=== PATIENT | female | born 1995 | race African-American/Black ===

== ENCOUNTER 2017-02-08 13:32 | Emergency (ER) | payer MEDICAID, OTHER ==
[~2017-02-08 13:32] MED LIST: PENVK500 PO
[2017-02-08 13:36] VITALS: BP 114/68; PULSE 96; RESP 14; TEMP 98.2; O2SAT 100
[2017-02-08 14:58] LABS: AUTOMATED NEUTROPHIL # 6.8 TH/MM3 (1.8-7.7); BASOPHIL % 0.2 % (0.0-2.0); EOSINOPHIL # 0.1 TH/MM3 (0-0.4); EOSINOPHIL % 1.3 % (0.0-4.0); HEMO FLAGS DIFF FINAL; LYMPH % 20.8 % (9.0-44.0); MEAN CELL VOLUME 83.8 FL (80.0-100.0); MEAN CORPUSCULAR HGB CONC 33.4 % (32.0-36.0); MONO % 6.8 % (0.0-8.0); NEUT % 70.9 % (16.0-70.0); PLATELET COUNT 179 TH/MM3 (150-450); RED BLOOD COUNT 4.53 MIL/MM3 (4.00-5.30); RED CELL DISTRIBUTION WIDTH 14.4 % (11.6-17.2); WHITE BLOOD COUNT 9.6 TH/MM3 (4.0-11.0)
[2017-02-08 15:15] LABS: ALT (GPT) 13 U/L (10-53); ANION GAP 9 MEQ/L (5-15); AST (GOT) 14 U/L (15-37); BICARBONATE 23.4 MEQ/L (21.0-32.0); BLOOD UREA NITROGEN 5 MG/DL (7-18); CHLORIDE 106 MEQ/L (98-107); GLOMERULAR FILTRATION RATE 169 ML/MIN (>89); POTASSIUM 3.5 MEQ/L (3.5-5.1); SODIUM (NA) 138 MEQ/L (136-145)
[2017-02-08 15:18] LABS: ALKALINE PHOSPHATASE 139 U/L (45-117); TOTAL BILIRUBIN ADULT 0.5 MG/DL (0.2-1.0)
[2017-02-08 15:58] VITALS: BP_SYST 106; BP_SYST 110; BP_SYST 114; BP_DIAS 60; BP_DIAS 71; BP_DIAS 79; RESP 18
[2017-02-08] MEDS ORDERED: SODIUM CHLOR 0.9% 1000 ML INJ 1,000 ML IV SCH (15:58)
--- NOTE | 2017-02-08 16:05 | PD ---
HPI Chief Complaint: Dizziness Time Seen by Provider: 15:55 Travel History International Travel<30 days: No Contact w/Intl Traveler<30days: No Traveled to known affect area: No History of Present Illness HPI This is a 22-year-old female EGA 36 weeks who presents for evaluation. 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 This lasted for 10 minutes and resolved after she sat down. She denies any syncope. She reports that there is some tightness in her chest at the time which resolved. She denies any shortness of breath, abdominal pain, nausea or vomiting, fevers or chills, flank pain, hematuria, dysuria, lower extremity edema. She denies any recent illnesses. She denies any recent dietary changes. She is otherwise healthy with no significant past medical history. Her PHARMACY ACCOUNT DIRECTOR is Dr. Casarez. No other complaints at this time. PFSH Past Medical History ?: : 0 Social History Alcohol Use: No Tobacco Use: No Substance Use: No Allergies-Medications (Allergen,Severity, Reaction): Coded Allergies: No Known Allergies (Unverified , 01/06/16) Reported Meds & Prescriptions Reported Meds & Active Scripts Active Penicillin V Potassium 500 Mg Tab 500 Mg PO QID 7 Days Review of Systems Except as stated in HPI: all other systems reviewed are Neg Physical Exam Narrative GENERAL: Well-developed well-nourished female in no acute distress SKIN: Warm and dry. HEAD: Atraumatic. Normocephalic. EYES: Pupils equal and round. No scleral icterus. No injection or drainage. ENT: No nasal bleeding or discharge. Mucous membranes pink and moist. NECK: Trachea midline. No JVD. CARDIOVASCULAR: Regular rate and rhythm. No murmur appreciated. RESPIRATORY: No accessory muscle use. Clear to auscultation. Breath sounds equal bilaterally. GASTROINTESTINAL: Abdomen distended with elevated fundal height, third trimester , nontender. MUSCULOSKELETAL: No obvious deformities. No edema. NEUROLOGICAL: Awake and alert. No obvious cranial nerve deficits. Motor grossly within normal limits. Normal speech. PSYCHIATRIC: Appropriate mood and affect; insight and judgment normal. Data Data Last Documented VS Vital Signs Date Time Temp Pulse Resp B/P (MAP) Pulse Ox O2 Delivery O2 Flow Rate FiO2 02/08/17 16:00 89 18 99 Room Air 02/08/17 15:59 02/08/17 13:36 98.2 Orders Orders Complete Blood Count With Diff (02/08/17 13:58) Comprehensive Metabolic Panel (02/08/17 13:58) Electrocardiogram (02/08/17 ) Orthostatic Vital Signs (02/08/17 15:58) Sodium Chlor 0.9% 1000 Ml Inj (Ns 1000 M (02/08/17 15:58) Labs Laboratory Tests Test 02/08/17 14:35 White Blood Count 9.6 TH/MM3 Red Blood Count 4.53 MIL/MM3 Hemoglobin 12.7 GM/DL Hematocrit 38.0 % Mean Corpuscular Volume 83.8 FL Mean Corpuscular Hemoglobin 28.0 PG Mean Corpuscular Hemoglobin Concent 33.4 % Red Cell Distribution Width 14.4 % Platelet Count 179 TH/MM3 Mean Platelet Volume 9.4 FL Neutrophils (%) (Auto) 70.9 % Lymphocytes (%) (Auto) 20.8 % Monocytes (%) (Auto) 6.8 % Eosinophils (%) (Auto) 1.3 % Basophils (%) (Auto) 0.2 % Neutrophils # (Auto) 6.8 TH/MM3 Lymphocytes # (Auto) 2.0 TH/MM3 Monocytes # (Auto) 0.6 TH/MM3 Eosinophils # (Auto) 0.1 TH/MM3 Basophils # (Auto) 0.0 TH/MM3 CBC Comment DIFF FINAL Differential Comment Blood Urea Nitrogen 5 MG/DL Creatinine 0.54 MG/DL Random Glucose 86 MG/DL Total Protein 7.2 GM/DL Albumin 2.8 GM/DL Calcium Level 8.8 MG/DL Alkaline Phosphatase 139 U/L Aspartate Amino Transf (AST/SGOT) 14 U/L Alanine Aminotransferase (ALT/SGPT) 13 U/L Total Bilirubin 0.5 MG/DL Sodium Level 138 MEQ/L Potassium Level 3.5 MEQ/L Chloride Level 106 MEQ/L Carbon Dioxide Level 23.4 MEQ/L Anion Gap 9 MEQ/L Estimat Glomerular Filtration Rate 169 ML/MIN [facility] Medical Decision Making Medical Screen Exam Complete: Yes Emergency Medical Condition: Yes Medical Record Reviewed: Yes Differential Diagnosis Arrhythmia, dehydration, electrolyte abnormality, pulmonary embolism, orthostatic hypotension, vasovagal lightheadedness Narrative Course 22-year-old female at estimated gestational age 36 weeks presents after a 10 minute episode of lightheadedness and chest tightness which occurred while standing at work and resolved her this was 5 hours ago and she has been asymptomatic since then. She appears well. A 12-lead EKG was obtained revealing sinus rhythm, rate 82. Basic lab work was ordered which revealed an abdomen of 2.8 but otherwise was unremarkable. The patient was monitored here for some time with no reoccurrence of her symptoms. She was given 1 L of IV fluids. Upon reexamination she is still asymptomatic, requesting that her significant other brings her haitian fries. She is stable for discharge, she will be referred to OB ED for clearance. Procedures EKG Prior to Arrival: Yes Diagnosis Primary Impression: Lightheadedness Additional Instructions: Follow up closely with her PHARMACY ACCOUNT DIRECTOR. Return for any new or worsening symptoms. Med/Other Pt SpecificInfo: No Change to Meds Disposition: 01 DISCHARGE HOME Condition: Stable Jona Murillo Feb 08, 2017 16:05
--- NOTE | 2017-02-09 19:39 | EKG ---
Date Performed: 02/08/2017 Time Performed: 14:13:23 PTAGE: 22 years EKG: Sinus rhythm WITH SINUS ARRHYTHMIA NORMAL ECG NO PREVIOUS TRACING DOCTOR: Ky Landaverde Interpretating Date/Time 02/09/2017 19:34:46
== END 2017-02-08 17:00 | disposition home or self-care (01) ==
LOC: NEPC 13:32
DX: O26.893 Other specified pregnancy related conditions, third trimester (principal); R42 Dizziness and giddiness; Z3A.36 36 weeks gestation of pregnancy
CPT/HCPCS: 80053; 85025; 93005; 99284; J7030

== ENCOUNTER 2017-02-08 17:43 | Emergency (ER) | payer MEDICAID ==
--- NOTE | 2017-02-08 18:23 | PD ---
HPI Chief Complaint Dizziness Date Seen: Feb 08, 2017 Time Seen: 18:18 Travel History International Travel<30 Days: No Contact w/Intl Traveler<30Days: No Known Affected Area: No History of Present Illness HPI 22-year-old black female at 37 weeks tomorrow patient of [facility] who presents complaining of dizziness today. States she's had some dizziness couple weeks ago as well. She came to the emergency room main ER here negative her liter fluid and center appear to be monitored. Currently NST is reactive she's kennedy Occasionally Weeks Gestation: 37 Para: 0 : 1 History Social History Alcohol Use: No Tobacco Use: No Substance Abuse: No Allergies-Medications (Allergen,Severity, Reaction): Coded Allergies: No Known Allergies (Unverified , 01/06/16) Home Meds Active Scripts Penicillin V Potassium (Penicillin V Potassium) 500 Mg Tab, 500 MG PO QID for 7 Days, TAB 0 Refills Prov:Dennis Montgomery MD 01/06/16 Review of Systems General / Constitutional: No: Fever, Weight Gain, Chills, Other Eyes: No: Diploplia, Blurred Vision, Visual changes, Pain, Photophobia HENT: Lightheadedness, No: Headaches, Vertigo Cardiovascular: No: Irregular Rhythm, Chest Pain or Discomfort, Palpitations, Tachycardia, Syncope, Varicosities, Edema, Cyanosis Respiratory: No: Cough, Short of Breath, Other Gastrointestinal: No: Nausea, Vomiting, Diarrhea Genitourinary: No: Decreased Urinary Output, Oliguria Musculoskeletal: No: Limited ROM, Weakness, Cramping, Edema, Pain Skin: No Rash, No Itching, No Dryness, No Lumps, No Change in Pigmentation, No Change in Nails, No Alopecia, No Lesions Neurologic: No: Weakness, Dizziness, Syncope, Focal Abnormalities, Coordination Problem, Headache, Slurred Speech, Seizures Psychiatric: No: Depression, Suicidal Ideations, Homicidal Ideation Endocrine: No: Heat Intolerance, Cold Intolerance, Polydipsia, Polyuria, Other Physical Exam Narrative GENERAL: Well-nourished, well-developed patient. SKIN: Warm and dry. HEAD: Normocephalic and atraumatic. EYES: No scleral icterus. No injection or drainage. ENT: No nasal drainage noted. Mucous membranes pink. Airway patent. NECK: Supple, trachea midline. No JVD. CARDIOVASCULAR: Regular rate and rhythm without murmurs, gallops, or rubs. RESPIRATORY: Breath sounds equal bilaterally. No accessory muscle use. BREASTS: Bilateral exam showed no masses , no retractions, no nipple discharge. ABDOMEN/GI: Abdomen soft, non-tender, bowel sounds present, no rebound, no guarding Gravid to [37-] weeks size Fundal Height: [37-] GENITOURINARY: External Genitalia: intact and normal in appearance BUS glands: [-] Cervix: [-] Dilatation: [0-] Effacement: [-0] Station: [-3] Presentation: [vtx-] Membranes: [intact ] Uterine Contractions: [occasional-] FHT's: Category: [1-] Baseline: [133-] Reactive: [-yes] Variability: [-mod] Decels: [0-] EXTREMITIES: No cyanosis or edema. BACK: Nontender without obvious deformity. No CVA tenderness. NEUROLOGICAL: Awake and alert. Motor and sensory grossly within normal limits. Five out of 5 muscle strength in all muscle groups. Normal speech. MDM Interpretation(s) 22-year-old black female at 37 weeks tomorrow presents planning of dizziness today. heart tones are reactive she is having occasional contraction. She was seen in the main ER prior to coming up here given the liter fluid that time she is feeling better now. She had an acute spell of dizziness a couple weeks ago but otherwise has not had a problem with Plan Plan patient be discharged home to increase bedrest if needed, Tylenol when necessary and increase her fluid intake to hydrate. Follow-up with the Marbella Casarez's office Diagnosis Diagnosis: Primary Impression: Dizziness Additional Impression: 37 weeks gestation of Disposition: DISCHARGE HOME Condition: Stable Fernando Ham II, MD Feb 08, 2017 18:23
[2017-02-08] MEDS ORDERED: LACTATED RINGER'S 1000 ML INJ 1,000 ML IV ONE (19:15)
== END 2017-02-08 19:15 | disposition home or self-care (01) ==
LOC: HOBED 17:43
DX: O26.893 Other specified pregnancy related conditions, third trimester (principal); R42 Dizziness and giddiness; Z3A.37 37 weeks gestation of pregnancy
CPT/HCPCS: 59025

== ENCOUNTER 2017-03-11 12:07 | Emergency (ER) | payer MEDICAID ==
[~2017-03-11] VITALS: Ht 154.9 cm; Wt 78.0 kg
--- NOTE | 2017-03-11 13:18 | PD ---
HPI Travel History International Travel<30 Days: No Contact w/Intl Traveler<30Days: No Known Affected Area: No (Flaquita Herron MD R1) History of Present Illness HPI 22 yr old at 41/2 weeks presents with 5 day hx of back pain. She is a patient of Marbella Casarez. She reports that intermittent,sharp back pain began on Thursday. She has not tried anything for the pain. She endorses urinary frequency. She denies dysuria, LOF, vaginal bleeding, vaginal discharge, and contractions. She reports good movement. She states that her next appointment with patternmaker wood will be next Thursday for induction if she has not gone into labor. (Flaquita Herorn MD R1) History Past Medical History Medical History: Denies Significant Hx (Flaquita Herron MD) Past Surgical History Surgical History: No Previous Surgery (Flaquita Herron MD) Family History Family History: Negative (Flaquita Herron MD) Social History Alcohol Use: No Tobacco Use: No Substance Abuse: No (Flaquita Herron MD) Allergies-Medications (Allergen,Severity, Reaction): Coded Allergies: No Known Allergies (Unverified Adverse Reaction, Unknown, 03/11/17) Home Meds Active Scripts Penicillin V Potassium (Penicillin V Potassium) 500 Mg Tab, 500 MG PO QID for 7 Days, TAB 0 Refills Prov:Dennis Montgomery MD 01/06/16 Review of Systems Except as stated in HPI: all other systems reviewed are Neg (Flaquita Herron MD R1) Physical Exam Narrative GENERAL: Well-nourished, well-developed patient. SKIN: Warm and dry. HEAD: Normocephalic and atraumatic. EYES: No scleral icterus. No injection or drainage. ENT: No nasal drainage noted. Mucous membranes pink. Airway patent. NECK: Supple, trachea midline. No JVD. CARDIOVASCULAR: Regular rate and rhythm without murmurs, gallops, or rubs. RESPIRATORY: Breath sounds equal bilaterally. No accessory muscle use. DIGITAL EXAM: done by nurse, soft, mid-position, closed cervix, -4 FHT's: Category: 1 Baseline: 120s Reactive: yes Variability: moderate Decels: no EXTREMITIES: No cyanosis or edema. BACK: Nontender without obvious deformity. NEUROLOGICAL: Awake and alert. Motor and sensory grossly within normal limits. (Flaquita Herron MD R1) Data Data Vital Signs Reviewed: Yes Group B Strep: Positive (Flaquita Herron MD R1) MDM Plan 22 yr old at 41/2 weeks with [place] contractions 1. IUP -Category 1, reassuring 2. GBS positive 3. Bar - Bee contractions -contractions on monitor every 6-7 min -closed, normal cervix on digital exam via nurse - (Flaquita Herron MD R1) Attending Attestation The patient is a 22-year-old 1 para 0 at 41 weeks and 2 days. She presented with complaints of lower back pain. Labor was ruled out during her hospital course. We recommended induction of labor as the patient is past 41 weeks gestational age. The patient declined induction of labor at this time, however was amenable to induction of labor later this week. Biophysical profile was obtained which was 8 out of 8 with reactive NST. EFREM was 12.2. The patient is given strict labor precautions and kick counts. She will be scheduled for induction. I personally evaluated and examined the patient. I discussed the risks of induction including but not limited to increased risk of delivery. I discussed that we only perform deliveries for medical indications and her goals a healthy vaginal delivery if possible. I performed all lopez decision making portions of the case. (Hermelinda Palafox MD) Disposition: 01 DISCHARGE HOME Condition: Good Flaquita Herron MD R1 Mar 11, 2017 13:18 Hermelinda Palafox MD Mar 11, 2017 15:44
[2017-03-11 14:18] LABS: BACTERIA, URINE FEW /hpf; BLOOD, URINE NEG (NEG); COMMENT (UR) CULTURE INDICATED; CULTURE IF INDICATED CULTURE INDICATED; GLUCOSE,URINE NEG (NEG); KETONE, URINE NEG (NEG); MUCUS URINE FEW /lpf (OCC); NITRITE,URINE NEG (NEG); SQUAMOUS EPITHELIAL CELL URINE 25 /hpf (0-5); URINE COLOR YELLOW (YELLW/STRAW)
--- NOTE | 2017-03-11 15:47 | PD ---
History of Present Illness History of Present Illness NST report Indications: IUP at 41.2, post term heart rate baseline is in the 130s, with good accelerations, and no decelerations noted. There is moderate long-term variability and the heart rate tracing is reactive and reassuring for gestational age. Biophysical profile was performed which was 8 out of 8, with NST is 10 out of 10 Follow-up: Follow-up as clinically indicated, patient will be scheduled for induction this week Final diagnosis IUP at 41.2, postterm , reassuring testing Hermelinda Palafox MD Mar 11, 2017 15:47
--- NOTE | 2017-03-11 15:57 | PD ---
HPI Travel History International Travel<30 Days: No Contact w/Intl Traveler<30Days: No Known Affected Area: No Allergies-Medications (Allergen,Severity, Reaction): Coded Allergies: No Known Allergies (Unverified Adverse Reaction, Unknown, 03/11/17) Home Meds Active Scripts Penicillin V Potassium (Penicillin V Potassium) 500 Mg Tab, 500 MG PO QID for 7 Days, TAB 0 Refills Prov:Dennis Montgomery MD 01/06/16 Review of Systems Except as stated in HPI: all other systems reviewed are Neg (see history of present illness of other documentation) Musculoskeletal: Other (lower back pain) Data Data Orders Orders Vital Signs (Adult) .ON ADMISSION (03/11/17 13:14) ^ Labor Status (03/11/17 13:14) Urinalysis - C+S If Indicated (03/11/17 13:14) ^ Non Stress Test (03/11/17 13:14) ^ Hydration (03/11/17 13:14) Urine Culture (03/11/17 13:00) Us Ob Bpp Wo Nst W Repeat (03/11/17 ) Labs Laboratory Tests Test 03/11/17 13:00 Urine Color YELLOW Urine Turbidity HAZY Urine pH 7.0 Urine Specific [place] 1.013 Urine Protein TRACE Urine Glucose (UA) NEG Urine Ketones NEG Urine Occult Blood NEG Urine Nitrite NEG Urine Bilirubin NEG Urine Urobilinogen LESS THAN 2.0 Urine Leukocyte Esterase LARGE Urine RBC 2 Urine WBC 9 Urine Squamous Epithelial Cells 25 Urine Bacteria FEW Urine Mucus FEW Microscopic Urinalysis Comment CULTURE INDICATED Date/Time Source Procedure Growth Status 03/11/17 13:00 Urine Clean Catch Urine Culture Pending Received MDM Narrative Course / MDM Note for discharge purposes, see other documentation Diagnosis Diagnosis: Primary Impression: 41 weeks gestation of Additional Impression: False labor after 37 weeks of gestation without delivery Disposition: 01 DISCHARGE HOME Condition: Good Patient Instructions: General Instructions, Having Your Baby: The Labor Process (GEN), Movement (ED) Additional Instructions: Return for induction of labor tomorrow night at 9pm. Return to triage if water breaks, vaginal bleeding, regular painful contractions, or decreased movment. Departure Forms: Tests/Procedures Hermelinda Palafox MD Mar 11, 2017 15:57
[2017-03-17] MEDS ORDERED: IBUP1TAB5 PO (08:47)
[2017-03-17] MEDS ORDERED: ZOFR8TAB PO (08:47)
[2017-03-17] MEDS ORDERED: NORE0.3513 PO (08:55)
[2017-03-17] MEDS ORDERED: OXYC1TAB63 PO (08:57)
== END 2017-03-11 16:44 | disposition home or self-care (01) ==
LOC: HOBED 12:07
DX: O47.1 False labor at or after 37 completed weeks of gestation (principal); Z3A.41 41 weeks gestation of pregnancy
CPT/HCPCS: 59025; 76816; 76819; 81001; 87086

== ENCOUNTER 2017-03-24 17:18 | Emergency (ER) | payer MEDICAID ==
[~2017-03-24 17:18] MED LIST changes: +IBUP1TAB5 PO; +NORE0.3513 PO; +OXYC1TAB63 PO; -PENVK500 PO; +ZOFR8TAB PO
[2017-03-24 17:20] VITALS: BP 130/70; PULSE 88; RESP 14; TEMP 98.5; O2SAT 99
--- NOTE | 2017-03-24 18:21 | PD ---
HPI Chief Complaint: Wound/Suture/Staple Re-Check Time Seen by Provider: 18:06 Travel History International Travel<30 days: No Contact w/Intl Traveler<30days: No Traveled to known affect area: No History of Present Illness HPI 22-year-old female presents to the emergency department with concern of a bloody discharge from her incision for the last day. States he had a approximately 10 days ago and she has had no issues up to yesterday. Patient denies significant pain to the area, fever, chills, or abdominal pain. She is otherwise doing well and has no other complaints. States that she has been showering and lightly dabbing the incision site. She has not removed any of the steri strips as directed by her pallet stone positioner. PFSH Past Medical History ?: Not : 0 Social History Alcohol Use: No Tobacco Use: No Substance Use: No Allergies-Medications (Allergen,Severity, Reaction): Coded Allergies: No Known Allergies (Verified Allergy, Unknown, 03/12/17) Reported Meds & Prescriptions Reported Meds & Active Scripts Active Oxycodone-Acetaminophen 5-325 mg Tab 1 Tab PO Q4H PRN Shannon-35 (Norethindrone) 0.35 Mg Tab 1 Tab PO DAILY Ibuprofen 400 Mg Tab 400 Mg PO Q6H PRN Zofran (Ondansetron HCl) 8 Mg Tab 8 Mg PO TID Take 1/2 tablet every 6 hours as needed for nausea Review of Systems Except as stated in HPI: all other systems reviewed are Neg Physical Exam Narrative GENERAL: well developed well nourished, in NAD SKIN: Warm and dry. redundant abdominal tissue over incision site. Odor present at incision site, steristrips in place although sloughing off for the most part. macerated. scant bloody discharge. otherwise, clear discharge. HEAD: Normocephalic. EYES: No scleral icterus. No injection or drainage. CARDIOVASCULAR: Regular rate and rhythm without murmurs, gallops, or rubs. RESPIRATORY: Breath sounds equal bilaterally. No accessory muscle use. GASTROINTESTINAL: Abdomen soft, non-tender, nondistended. MUSCULOSKELETAL: No cyanosis, or edema. BACK: Nontender without obvious deformity. No CVA tenderness. Data Data Last Documented VS Vital Signs Date Time Temp Pulse Resp B/P (MAP) Pulse Ox O2 Delivery O2 Flow Rate FiO2 03/24/17 18:22 03/24/17 17:20 98.5 88 14 99 Orders Orders Ed Discharge Order (03/24/17 18:21) MDM Medical Decision Making Medical Screen Exam Complete: Yes Emergency Medical Condition: Yes Differential Diagnosis cellulitis versus wound care versus erysipelas versus wound complications Narrative Course 22-year-old female presents to the emergency department with concern of a bloody discharge from her incision for the last day. States he had a approximately 10 days ago and she has had no issues up to yesterday. Denies trauma or any other inciting events. Patient denies significant pain to the area, fever, chills, or abdominal pain. She is otherwise doing well and has no other complaints. States that she has been showering and lightly dabbing the incision site. She has not removed any of the steri strips as directed by her pallet stone positioner. Vital signs stable. Physical exam demonstrates poor wound care, no evidence of cellulitis or infectious process at this time. Slight dehiscence of wound site (less than 2mm) . Removed 3-4 steristrips, cleansed site with iodine swabs, dried, applied gauze to the site. She is POD #10, s/p . Advised on proper wound care. Pt to follow up with OB within a few days for wound recheck or as directed. Diagnosis Primary Impression: S/P Additional Impression: Encounter for wound care Referrals: Primary Care Physician Additional Instructions: Ensure you cleaned the wound site thoroughly and dry completely. Review may apply triple antibiotic ointment at night. During the day ensure there is a piece of gauze between skin folds. If the Steri-Strips began to fall off he may peel them slowly to determine if they will come off easily. Follow-up with your pallet stone positioner and/or cte teacher within 2-3 days If your symptoms persist or worsen return to the emergency department Disposition: 01 DISCHARGE HOME Condition: Stable Kimberly Rangel Mar 24, 2017 18:21
== END 2017-03-24 18:33 | disposition home or self-care (01) ==
LOC: NEPK 17:18
DX: Z51.89 Encounter for other specified aftercare (principal)
CPT/HCPCS: 99281